=== PATIENT | male | born 1985 | race Caucasian/White ===

== ENCOUNTER → 2020-10-31 | Outpatient (CLI) | payer BC ==
[2020-10-31 19:08] LABS: Follicle Stimulating Hormone 4.6 mIU/mL; Luteinizing Hormone 2.8 mIU/mL
[2020-10-31 19:25] LABS: Estradiol 14.8 pg/mL
== END | disposition home or self-care (01) ==
LOC: LABWHC1 13:51
PROVIDERS: ATTEND Urology
DX: E29.9 Testicular dysfunction, unspecified (principal)
CPT/HCPCS: 36415; 82670; 83001; 83002; 84403

== ENCOUNTER → 2023-08-30 | Outpatient (CLI) | payer BC ==
--- NOTE | 2023-08-30 10:10 | CT ---
EXAMINATION TYPE: CT soft tissue neck w con DATE OF EXAM: 08/30/2023 COMPARISON: None HISTORY: 37-year-old male D17.30 lump on back of neck TECHNIQUE: Contiguous axial scanning of the soft tissues of the neck performed with IV Contrast, yoan ent injected with 100 mL of Isovue 300. Coronal and sagittal reconstructions performed. CT DLP: 793 mGycm Automated exposure control for dose reduction was used. FINDINGS: Visualized intracranial structures, orbits and globes, and mastoid air cells appear clear. Moderate mucosal thickening maxillary sinuses. Severe mucosal thickening throughout the ethmoid air c ells. Nasopharynx appears clear. Mild hypertrophy of the bilateral palatine tonsils. Some asymmetric hypertrophy of the left lingual t onsils. Oropharynx otherwise clear. The epiglottis and prevertebral soft tissues are satisfactory. Glottic and subglottic structures as well as the tracheal column and visualized upper lungs are clear . Normal variant azygos fissure is noted. Thyroid gland, submandibular glands, and parotid glands are satisfactory. No cervical lymphadenopathy identified. Scattered nonenlarged lymph nodes are present on both sides o f the neck measuring up to 9 mm short axis. Palpable marker placed along the right posterior lower neck. There is a vague oval fat density lesion here overlying the superficial fascia measuring 3.3 x 2.7 x 1.3 cm, axial image 54 and sagittal imag e 11. Bones: Reversal of the normal cervical lordosis could be positional or due to muscle spasm. IMPRESSION: 1. MILD HYPERTROPHY OF THE BILATERAL LINGUAL TONSILS AND SOME ASYMMETRIC HYPERTROPHY OF THE LEFT LING UAL TONSILS. 2. Palpable marker placed along the right posterior lower neck. There is a vague oval fat density les ion here in the deep subcutaneous fat overlying the superficial fascia measuring 3.3 x 2.7 x 1.3 cm, most suggestive of a lipoma. 3. Severe chronic ethmoid sinus disease and moderate within the maxillary sinuses.
== END | disposition home or self-care (01) ==
LOC: RADCTMAIN 09:03
PROVIDERS: ATTEND Otolaryngology
DX: J34.89 Other specified disorders of nose and nasal sinuses (principal); J35.1 Hypertrophy of tonsils; D17.0 Benign lipomatous neoplasm of skin and subcutaneous tissue of head, face and neck
CPT/HCPCS: 70491; Q9967